=== PATIENT | female | born 1935 | race Caucasian/White ===

== ENCOUNTER 2018-09-20 10:20 | Emergency (ER) | payer OTHER ==
[~2018-09-20] VITALS: Ht 160 cm; Wt 47.6 kg
[2018-09-20] MEDS ORDERED: SODIUM CHLORIDE 0.9% 1000ML 1,000 ML IV STA (10:51)
--- NOTE | 2018-09-20 11:58 | Diagnostic Imaging Report ---
Exam: Head CT without contrast History: Pain Comparison studies: None Technique: Axial images were obtained from the skull base to the vertex. Coronal and sagittal images reconstructed from the axial data. Dose modulation, iterative reconstruction, and/or weight based adjustment of the mA/kV was utilized to reduce the radiation dose to as low as reasonably achievable. Radiation dose: Total DLP: 921 mGy*cm. Estimated effective dose: DLP x 0.015 Intravenous contrast: None Findings: Scalp: No abnormalities. Bones: No fractures, blastic or lytic lesions. Brain sulci: Prominent.. Ventricles: Mild compensatory dilatation.. No hydrocephalus. Extra-axial spaces: No masses, no fluid collection. Parenchyma: No mass, acute hemorrhage or acute cortical vascular insults. A few scattered hypodensities in the supratentorial white matter are nonspecific but most compatible with chronic small vessel ischemic changes. Sellar/suprasellar region: No abnormalities. Craniocervical junction: Patent foramen magnum. No Chiari one malformation. Incidental findings: Atherosclerotic calcifications in the carotid siphons.. IMPRESSION: 1. No acute abnormalities. 2. Generalized parenchymal volume loss. 3. Mild supratentorial chronic microvascular ischemic changes. Signed by: Dr. Nasir Wynne M.D. on 09/20/2018 11:54 AM
--- NOTE | 2018-09-20 12:13 | Diagnostic Imaging Report ---
EXAMINATION: CHEST SINGLE (PORTABLE) INDICATION: Chest and abdominal pain COMPARISON: None FINDINGS: TUBES and LINES: None. LUNGS: The lungs are well inflated. No focal consolidation or pulmonary edema. Minimal subsegmental atelectasis at the left lower lobe. PLEURA: Trace left pleural effusion. No pneumothorax. HEART AND MEDIASTINUM: The cardiomediastinal silhouette is unremarkable. BONES AND SOFT TISSUES: No acute osseous lesion. Soft tissues are unremarkable. UPPER ABDOMEN: No free air under the diaphragm. IMPRESSION: No focal pneumonia or pulmonary edema. Signed by: Kvng Adams MD on 09/20/2018 12:10 PM
[2018-09-20 12:28] LABS: BASOPHILS % 0.3 % (0.0-1.0); EOSINOPHILS % 0.1 % (0.0-6.0); HEMATOCRIT 47.5 % (34.2-44.1); HEMOGLOBIN 15.8 g/dL (12.0-16.0); LYMPHOCYTES # (AUTO) 0.9 (1.0-3.2); LYMPHOCYTES % 11.6 % (18.0-39.1); MEAN CORPUSCULAR HEMOGLOBIN 32.4 pg (28-32); MEAN CORPUSCULAR HGB CONC 33.3 g/dL (31-35); MEAN CORPUSCULAR VOLUME 97.5 fL (81-99); MONOCYTES # (AUTO) 0.4 (0.2-0.8); MONOCYTES % 5.2 % (4.4-11.3); NEUTROPHILS # (AUTO) 6.3 (2.1-6.9); NEUTROPHILS % 82.5 % (38.7-80.0); PLATELET COUNT 165 x10e3/uL (140-360); RED BLOOD COUNT 4.87 x10e6/uL (3.6-5.1); RED CELL DISTRIBUTION WIDTH 12.4 % (11.7-14.4)
[2018-09-20 12:32] LABS: BILIRUBIN,URINE NEGATIVE (NEGATIVE); CLARITY,URINE SL CLOUDY (CLEAR); COLOR,URINE YELLOW (YELLOW); KETONES,URINE NEGATIVE (NEGATIVE); LEUKOCYTE ESTERASE ,URINE NEGATIVE (NEGATIVE); NITRITE,URINE NEGATIVE (NEGATIVE); PROTEIN,URINE DIPSTICK NEGATIVE (NEGATIVE); URINE UROBILINOGEN 0.2 mg/dL (0.2 - 1)
[2018-09-20 12:47] LABS: ALBUMIN 4.3 g/dL (3.5-5.0); ALBUMIN/GLOBULIN RATIO 1.2 (0.8-2.0); ANION GAP 14.4 mmol/L (8-16); CALCIUM 9.4 mg/dL (8.4-10.2); CREATININE, SERUM 0.89 mg/dL (0.57-1.11); MAGNESIUM 2.2 MG/DL (1.3-2.1); POTASSIUM 3.4 mmol/L (3.5-5.1)
[2018-09-20 12:53] LABS: CREATINE KINASE MB 1.9 ng/mL (0-5.0)
--- NOTE | 2018-09-20 12:59 | Diagnostic Imaging Report ---
EXAM: CT Abdomen and Pelvis WITHOUT contrast INDICATION: Evaluation for renal calculi COMPARISON: None. TECHNIQUE: Abdomen and pelvis were scanned utilizing a multidetector helical scanner from the lung base to the pubic symphysis without administration of IV contrast. Absence of intravenous contrast decreases sensitivity for detection of focal lesions and vascular pathology. Coronal and sagittal reformations were obtained. Routine protocol was performed. IV CONTRAST: None. ORAL CONTRAST: Water RADIATION DOSE: Total DLP: 165.6 mGy*cm Dose modulation, iterative reconstruction, and/or weight based adjustment of the mA/kV was utilized to reduce the radiation dose to as low as reasonably achievable. COMPLICATIONS: None FINDINGS: LINES and TUBES: None. LOWER THORAX: Partially visualized lung bases show no focal consolidation or pulmonary edema. HEPATOBILIARY: No focal hepatic lesions. No biliary ductal dilation. GALLBLADDER: Decompressed. SPLEEN: No splenomegaly. PANCREAS: Marked fatty atrophy of the pancreas. ADRENALS: No adrenal nodules KIDNEYS/URETERS: Mild left hydronephrosis. No renal calculi identified. No cystic or solid mass lesions. GI TRACT: Colonic diverticulosis with no CT evidence of diverticulitis. No abnormal distention, wall thickening, or evidence of bowel obstruction. Appendix not well visualized. No secondary evidence of appendicitis. PELVIC ORGANS/BLADDER: Status post hysterectomy. LYMPH NODES: No lymphadenopathy. VESSELS: Atherosclerotic calcifications of the abdominal aorta and major branches. PERITONEUM / RETROPERITONEUM: No free air or fluid. BONES: No acute fracture or dislocation. Mild degenerative changes of the visualized spine. SOFT TISSUES: Right buttock injection granuloma. IMPRESSION: Mild left hydronephrosis. No renal calculi identified. Colonic diverticulosis without diverticulitis. Signed by: Kvng Adams MD on 09/20/2018 12:55 PM
[2018-09-20 13:09] LABS: BACTERIA,URINE MODERATE /HPF; EPITHELIAL CELLS,URINE FEW /LPF; MUCUS,URINE FEW (RARE)
--- NOTE | 2018-09-20 13:30 | NUR ---
PT GIVEN ICE WATER AT THIS TIME, TOLERATING WELL THUS FAR, WILL CONTINUE TO MONITOR FOR PO CHALLENGE BEFORE PENDING D/C.
--- NOTE | 2018-09-20 13:45 | NUR ---
PT TOLERATING FLUIDS WELL, NO EMESIS NOTED, DENIES NAUSEA, TO BE D/C AT THIS TIME; KAILEE ROE MADE AWARE.
[2018-09-20 14:10] VITALS: BP 105/63
== END 2018-09-20 14:00 | disposition home or self-care (01) ==
LOC: ER 10:20
DX: R10.13 Epigastric pain (principal); R11.2 Nausea with vomiting, unspecified; R19.7 Diarrhea, unspecified; E86.0 Dehydration; A08.4 Viral intestinal infection, unspecified; K52.9 Noninfective gastroenteritis and colitis, unspecified; E87.6 Hypokalemia; E07.9 Disorder of thyroid, unspecified; H40.9 Unspecified glaucoma
CPT/HCPCS: 36415; 70450; 71045; 74176; 80053; 81001; 82150; 82550; 82553; 83690; 83735; 84484; 85025; 93005; 99284; J7030

== ENCOUNTER 2022-01-31 00:17 | Inpatient (IN) | payer MEDICARE, OTHER ==
[~2022-01-31] VITALS: Ht 160 cm; Wt 47.6 kg
[2022-01-31] MEDS ORDERED: ONDANSETRON HCL INJ 2MG/ML 2ML 2 MG/ML VIAL IV STA (00:55)
[2022-01-31] MEDS ORDERED: SODIUM CHLORIDE 0.9% 1000ML 1,000 ML IV ONE (01:00)
[2022-01-31 01:13] LABS: BASOPHILS % 0.2 % (0.0-1.0); HEMATOCRIT 45.7 % (34.2-44.1); HEMOGLOBIN 14.7 g/dL (12.0-16.0); LYMPHOCYTES # (AUTO) 0.5 (1.0-3.2); LYMPHOCYTES % 2.8 % (18.0-39.1); MEAN CORPUSCULAR HEMOGLOBIN 32.7 pg (28-32); MEAN CORPUSCULAR HGB CONC 32.2 g/dL (31-35); MEAN CORPUSCULAR VOLUME 101.6 fL (81-99); MONOCYTES # (AUTO) 1.3 (0.2-0.8); MONOCYTES % 7.4 % (4.4-11.3); NEUTROPHILS # (AUTO) 15.5 (2.1-6.9); NEUTROPHILS % 89.1 % (38.7-80.0); PLATELET COUNT 156 x10e3/uL (140-360); RED CELL DISTRIBUTION WIDTH 12.4 % (11.7-14.4)
[2022-01-31 01:33] LABS: ANION GAP 14.1 mmol/L (8-16); CREATININE, SERUM 1.06 mg/dL (0.57-1.11); POTASSIUM 3.1 mmol/L (3.5-5.1)
[2022-01-31 01:35] LABS: CALCIUM 7.7 mg/dL (8.4-10.2)
[2022-01-31 01:50] LABS: CLARITY,URINE CLOUDY (CLEAR); COLOR,URINE AMBER (YELLOW); KETONES,URINE TRACE (NEGATIVE); LEUKOCYTE ESTERASE ,URINE NEGATIVE (NEGATIVE); NITRITE,URINE NEGATIVE (NEGATIVE); PROTEIN,URINE DIPSTICK 2+ (NEGATIVE); URINE UROBILINOGEN 2 mg/dL (0.2 - 1)
[2022-01-31 01:59] LABS: BACTERIA,URINE FEW /HPF; EPITHELIAL CELLS,URINE FEW /LPF; WBC,URINE (MAN) 0-5 /HPF (0-5)
[2022-01-31] MEDS ORDERED: IOPAMIDOL 370 MG/ML 100 ML INFUS..BTL INJ ONE (02:12)
[2022-01-31] MEDS ORDERED: POTASSIUM CHLORIDE 20 MEQ TAB CR PO STA (02:52)
[2022-01-31] MEDS ORDERED: SODIUM CHLORIDE 0.9% 1000ML 500 ML IV SCH (03:15)
[2022-01-31] MEDS ORDERED: SODIUM CHLORIDE 0.9% 1000ML 1,000 ML ONE (03:29)
[2022-01-31] MEDS: POTASSIUM CHLORIDE 20MEQ/100ML 100 ML IV SCH ×2 (04:00→05:57)
[2022-01-31] MEDS ORDERED: METRONIDAZOLE 500MG/NS 100ML 100 ML IV STA (04:13)
[2022-01-31] MEDS ORDERED: SODIUM CHLORIDE 0.9% 1000ML 1,000 ML IV SCH (04:30)
[2022-01-31] MEDS ORDERED: ONDANSETRON HCL INJ 2MG/ML 2ML 2 MG/ML VIAL IV PRN (04:30)
[2022-01-31] MEDS ORDERED: LATANOPROST2.5 ML OP (09:47)
[2022-01-31] MEDS ORDERED: LEVOTHYROXINE50 MCG PO (09:47)
[2022-01-31] MEDS ORDERED: ALPRAZOLAM0.5 MG PO (09:47)
[2022-01-31] MEDS ORDERED: K DUR10 MEQ PO (10:16)
[2022-01-31] MEDS: KCL 20MEQ/.9 SOD CHL 1,000 ML IV SCH (12:41)
[2022-01-31] MEDS: METRONIDAZOLE 500MG/NS 100ML 100 ML IV SCH ×3 (12:45→21:40)
[2022-01-31] MEDS ORDERED: DORZOLAMIDE-TIM10 ML OP (13:45)
[2022-01-31 14:30] VITALS: BP 91/60
[2022-01-31 16:10] VITALS: BP 91/60
[2022-01-31] MEDS: ALPRAZOLAM 0.5 MG TAB PO SCH ×2 (17:00→17:36)
[2022-01-31 20:00] VITALS: BP 100/58
[2022-02-01] VITALS (8 sets, daily range): BP systolic 90–138; BP diastolic 51–86
[2022-02-01 00:50] LABS: BASOPHILS # (AUTO) 0.1 (0.0-0.1); BASOPHILS % 0.3 % (0.0-1.0); EOSINOPHILS % 0.2 % (0.0-6.0); HEMATOCRIT 42.7 % (34.2-44.1); HEMOGLOBIN 13.5 g/dL (12.0-16.0); LYMPHOCYTES # (AUTO) 1.6 (1.0-3.2); MEAN CORPUSCULAR HEMOGLOBIN 32.8 pg (28-32); MEAN CORPUSCULAR HGB CONC 31.6 g/dL (31-35); MEAN CORPUSCULAR VOLUME 103.6 fL (81-99); MONOCYTES # (AUTO) 0.8 (0.2-0.8); MONOCYTES % 5.2 % (4.4-11.3); NEUTROPHILS # (AUTO) 13.1 (2.1-6.9); PLATELET COUNT 137 x10e3/uL (140-360); RED BLOOD COUNT 4.12 x10e6/uL (3.6-5.1)
[2022-02-01 01:24] LABS: ALBUMIN 2.9 g/dL (3.5-5.0); ALBUMIN/GLOBULIN RATIO 0.9 (0.8-2.0); ANION GAP 11.6 mmol/L (8-16); CALCIUM 8.2 mg/dL (8.4-10.2); CREATININE, SERUM 0.98 mg/dL (0.57-1.11)
[2022-02-01 01:31] LABS: POTASSIUM 4.6 mmol/L (3.5-5.1)
[2022-02-01] MEDS: METRONIDAZOLE 500MG/NS 100ML 100 ML IV SCH ×3 (05:26→22:31)
[2022-02-01] MEDS: KCL 20MEQ/.9 SOD CHL 1,000 ML IV SCH ×3 (05:26→22:51)
[2022-02-01] MEDS: LEVOTHYROXINE SODIUM 50 MCG TAB PO SCH (05:27)
[2022-02-01 06:40] LABS: MAGNESIUM 2.2 MG/DL (1.3-2.1); PHOSPHORUS 2.4 MG/DL (2.3-4.7)
[2022-02-01 07:00] LABS: THYROID STIMULATING HORMONE 3.716 uIU/mL (0.350-4.940)
[2022-02-01] MEDS: DORZOLAMIDE/TIMOLOL (OPTH SOL) 10 ML DRPETTE OP SCH (09:00)
[2022-02-01] MEDS: LATANOPROST(OPTH) 2.5 ML BTL OP SCH (09:42)
[2022-02-01] MEDS: POTASSIUM CHLORIDE 10MEQ EA PO SCH (09:43)
[2022-02-01] MEDS: ALPRAZOLAM 0.5 MG TAB PO SCH ×2 (09:44→17:00)
[2022-02-01] MEDS ORDERED: DIPHENOXYLATE/ATROPINE TAB PO ONE (17:45)
[2022-02-02] VITALS (7 sets, daily range): BP systolic 96–108; BP diastolic 47–64
[2022-02-02] MEDS ORDERED: DIPHENOXYLATE/ATROPINE TAB PO ONE (00:15)
[2022-02-02] MEDS ORDERED: DICYCLOMINE HCL 20 MG TAB PO ONE (00:45)
[2022-02-02 06:18] LABS: BASOPHILS % 0.3 % (0.0-1.0); EOSINOPHILS # (AUTO) 0.2 (0.0-0.4); EOSINOPHILS % 1.7 % (0.0-6.0); HEMATOCRIT 36.6 % (34.2-44.1); LYMPHOCYTES # (AUTO) 1.1 (1.0-3.2); LYMPHOCYTES % 11.1 % (18.0-39.1); MEAN CORPUSCULAR HEMOGLOBIN 33.1 pg (28-32); MEAN CORPUSCULAR HGB CONC 32.8 g/dL (31-35); MEAN CORPUSCULAR VOLUME 100.8 fL (81-99); MONOCYTES # (AUTO) 0.4 (0.2-0.8); NEUTROPHILS # (AUTO) 7.8 (2.1-6.9); NEUTROPHILS % 82.5 % (38.7-80.0); PLATELET COUNT 138 x10e3/uL (140-360); RED BLOOD COUNT 3.63 x10e6/uL (3.6-5.1); RED CELL DISTRIBUTION WIDTH 13.1 % (11.7-14.4)
[2022-02-02] MEDS: LEVOTHYROXINE SODIUM 50 MCG TAB PO SCH (06:35)
[2022-02-02] MEDS: DICYCLOMINE HCL 20 MG TAB PO SCH ×3 (06:35→20:54)
[2022-02-02] MEDS: METRONIDAZOLE 500MG/NS 100ML 100 ML IV SCH ×3 (06:35→20:53)
[2022-02-02 06:40] LABS: ALBUMIN 2.6 g/dL (3.5-5.0); ALBUMIN/GLOBULIN RATIO 0.9 (0.8-2.0); ANION GAP 8.8 mmol/L (8-16); CALCIUM 7.5 mg/dL (8.4-10.2); CREATININE, SERUM 0.81 mg/dL (0.57-1.11); POTASSIUM 4.8 mmol/L (3.5-5.1)
[2022-02-02] MEDS ORDERED: DIAZEPAM 5 MG TAB PO ONE (08:30)
[2022-02-02] MEDS: ALPRAZOLAM 0.5 MG TAB PO SCH ×2 (08:43→17:00)
[2022-02-02] MEDS: POTASSIUM CHLORIDE 10MEQ EA PO SCH (08:43)
[2022-02-02] MEDS: DEXTROSE 5%/0.45% SOD CHL 1,000 ML IV SCH ×2 (08:52→20:56)
[2022-02-02] MEDS: CYANOCOBALAMIN INJ 1,000 MCG/ML VIAL IM SCH (08:52)
[2022-02-02] MEDS: DORZOLAMIDE/TIMOLOL (OPTH SOL) 10 ML DRPETTE OP SCH (09:00)
[2022-02-02] MEDS: LATANOPROST(OPTH) 2.5 ML BTL OP SCH (09:00)
[2022-02-02] MEDS ORDERED: GADOBENATE DIMEGLUMINE 0 ML IV ONE (13:08)
[2022-02-03] VITALS (8 sets, daily range): BP systolic 127–142; BP diastolic 58–72
[2022-02-03] MEDS: METRONIDAZOLE 500MG/NS 100ML 100 ML IV SCH ×2 (05:53→13:00)
[2022-02-03] MEDS: DICYCLOMINE HCL 20 MG TAB PO SCH ×2 (05:53→15:45)
[2022-02-03] MEDS: LEVOTHYROXINE SODIUM 50 MCG TAB PO SCH (05:53)
[2022-02-03 06:13] LABS: CALCIUM 7.8 mg/dL (8.4-10.2); CREATININE, SERUM 0.86 mg/dL (0.57-1.11)
[2022-02-03] MEDS: ALPRAZOLAM 0.5 MG TAB PO SCH ×2 (09:30→16:51)
[2022-02-03] MEDS: CYANOCOBALAMIN INJ 1,000 MCG/ML VIAL IM SCH (09:30)
[2022-02-03] MEDS: POTASSIUM CHLORIDE 10MEQ EA PO SCH (09:30)
[2022-02-03] MEDS: LATANOPROST(OPTH) 2.5 ML BTL OP SCH (09:38)
[2022-02-03] MEDS: DORZOLAMIDE/TIMOLOL (OPTH SOL) 10 ML DRPETTE OP SCH (09:38)
[2022-02-03] MEDS: DEXTROSE 5%/0.45% SOD CHL 1,000 ML IV SCH (15:30)
[2022-02-04] VITALS (7 sets, daily range): BP systolic 104–146; BP diastolic 65–79
[2022-02-04] MEDS: METRONIDAZOLE 500MG/NS 100ML 100 ML IV SCH ×3 (02:58→14:27)
[2022-02-04] MEDS: DEXTROSE 5%/0.45% SOD CHL 1,000 ML IV SCH ×2 (02:58→14:27)
[2022-02-04] MEDS: DICYCLOMINE HCL 20 MG TAB PO SCH ×3 (02:58→14:28)
[2022-02-04] MEDS: LEVOTHYROXINE SODIUM 50 MCG TAB PO SCH (06:11)
[2022-02-04 06:33] LABS: ANION GAP 11.8 mmol/L (8-16); CALCIUM 7.9 mg/dL (8.4-10.2); CREATININE, SERUM 0.89 mg/dL (0.57-1.11); POTASSIUM 3.8 mmol/L (3.5-5.1)
[2022-02-04] MEDS: POTASSIUM CHLORIDE 10MEQ EA PO SCH (08:47)
[2022-02-04] MEDS: CYANOCOBALAMIN INJ 1,000 MCG/ML VIAL IM SCH (08:47)
[2022-02-04] MEDS: LATANOPROST(OPTH) 2.5 ML BTL OP SCH (08:48)
[2022-02-04] MEDS: DORZOLAMIDE/TIMOLOL (OPTH SOL) 10 ML DRPETTE OP SCH (08:48)
[2022-02-04] MEDS: ALPRAZOLAM 0.5 MG TAB PO SCH ×2 (08:48→15:48)
== END 2022-02-04 16:00 | disposition home or self-care (01) | DRG 394 ==
LOC: ER 00:28 → ERHOLD 04:20 → OBSVTOIN 11:19 → MED/SURG2 14:40
PROVIDERS: ADMIT Internal Medicine; ATTEND Internal Medicine
DX: K55.9 Vascular disorder of intestine, unspecified (principal); A09 Infectious gastroenteritis and colitis, unspecified; E89.0 Postprocedural hypothyroidism; Z90.49 Acquired absence of other specified parts of digestive tract; Z87.891 Personal history of nicotine dependence; Z88.5 Allergy status to narcotic agent; E87.6 Hypokalemia; I73.9 Peripheral vascular disease, unspecified; Z90.710 Acquired absence of both cervix and uterus; K57.30 Diverticulosis of large intestine without perforation or abscess without bleeding; H40.9 Unspecified glaucoma
CPT/HCPCS: 36415; 74177; 80048; 80053; 81001; 82948; 83630; 83690; 83735; 84100; 84443; 85025; 87045; 87177; 87324; 87449; 93005; 96361; 99284; J0696; J2405; J3420; J3480; J7030; Q9967